=== PATIENT | female | born 1955 | race Caucasian/White ===

== ENCOUNTER → 2017-10-20 11:16 | Outpatient (REF) | payer OTHER, SELFPAY ==
[2017-10-20 13:26] LABS: Anion Gap 9.8 mmol/L (3-11); BUN 21 mg/dL (7-18); CO2 27.2 mmol/L (21.0-32.0); CREATININE 1.05 mg/dL (0.55-1.02); Calcium 9.2 mg/dL (8.5-10.1); Chloride 105 mmol/L (98-107); Estimated GFR 52.76 (mL/min/1.73m2); Glucose 100 mg/dL (70-100); Potassium 4.3 mmol/L (3.5-5.1); Sodium 142 mmol/L (136-145); TSH 1.82 uIU/mL (0.358-3.74)
== END ==
LOC: NCHCN 11:16
PROVIDERS: PCP Family Medicine; Visit Provider Family Medicine
DX: E04.2 Nontoxic multinodular goiter (principal); I10 Essential (primary) hypertension
CPT/HCPCS: 80048; 84443

== ENCOUNTER 2018-02-24 00:35 | Outpatient (CLI) | payer OTHER, SELFPAY ==
--- NOTE | 2018-02-24 10:20 | MERGE_ITS ---
*[facility]* *[facility]* [address] [place] [address] Date of study: 02/24/2018 Transthoracic Echocardiography M-mode, complete 2D, complete spectral Doppler, and color Doppler *STUDY CONCLUSIONS* Summary: 1. Left ventricle: The cavity size was severely dilated. There was mild focal basal hypertrophy of the septum. Systolic function was mildly to moderately reduced. The estimated ejection fraction was 40-45%. Severe hypokinesis of the entireinferior myocardium. Akinesis of the basal-midinferolateral myocardium. Doppler parameters are consistent with high ventricular filling pressure. 2. Aortic valve: Valve mobility was restricted. There was trivial regurgitation. VTI ratio of LVOT to aortic valve: 0.61. Valve area (VTI): 1.5cm^2. 3. Right ventricle: The cavity size was normal. Wall thickness was normal. Systolic function was normal. 4. Pulmonary arteries: Pulmonary systolic pressure was increased, in the range of 35mm Hg to 40mm Hg. *PATIENT PRESENTATION* Height: 162.6cm ((64in) ) S/D Pressure: 125 / 69 Weight: 80.7kg ((177.6lb) ) BSA: 1.94m^2 Test start time: 10:40 AM. Test stop time: 11:40 AM. PERFORMING [facility] CERTIFIED PHLEBOTOMIST Sultana Neff RT (R)(CT), [facility] ORDERING Giuseppe Tenorio REFERRING Giuseppe Tenorio *PROCEDURE DATA* Procedure information: The patient was identified by two identifiers. This study was interpreted by [facility]. Pertinent images and digital data are archived for permanent storage and are available for subsequent review. Comparison was made to the study of 04/24/2015. Study status: Routine. Transthoracic echocardiography. M-mode, complete 2D, complete spectral Doppler, and color Doppler. A Transthoracic Echocardiogram was performed. Scanning was performed from the parasternal, apical, subcostal, and suprasternal notch acoustic windows. Images were obtained using an [id number] cardiac ultrasound machine. Image quality was adequate. Study completion: The patient tolerated the procedure well. There were no complications. History: PMH: 60 yo F smoker COPD/SOB, with h/o CHF with LVEF 46% on last echo 2015. systolic murmur RUSB. *CARDIAC ANATOMY* Left ventricle: The cavity size was severely dilated. There was mild focal basal hypertrophy of the septum. Systolic function was mildly to moderately reduced. The estimated ejection fraction was 40-45%. Regional wall motion abnormalities: Severe hypokinesis of the entireinferior myocardium. Akinesis of the basal-midinferolateral myocardium. Doppler parameters are consistent with high ventricular filling pressure. Aortic valve: Trileaflet; mildly thickened, mildly calcified leaflets. Valve mobility was restricted. Doppler: Transvalvular velocity was within the normal range. There was no stenosis. There was trivial regurgitation. VTI ratio of LVOT to aortic valve: 0.61. Valve area (VTI): 1.5cm^2. Indexed valve area (VTI): 0.8cm^2/m^2. Peak velocity ratio of LVOT to aortic valve: 0.53. Valve area (Vmax): 1.3cm^2. Indexed valve area (Vmax): 0.7cm^2/m^2. Mean velocity ratio of LVOT to aortic valve: 0.59. Valve area (Vmean): 1.5cm^2. Indexed valve area (Vmean): 0.8cm^2/m^2. Mean gradient (S): 6.8mm Hg. Peak gradient (S): 14.4mm Hg. Aorta: Aortic root: The aortic root was normal in size. Ascending aorta: The ascending aorta was normal in size. Mitral valve: Mildly calcified annulus. Mobility was not restricted. Doppler: Transvalvular velocity was within the normal range. There was no evidence for stenosis. There was trivial regurgitation. Valve area by pressure half-time: 3.3cm^2. Indexed valve area by pressure half-time: 1.7cm^2/m^2. Peak gradient (D): 4.2mm Hg. Left atrium: The atrium was normal in size. Right ventricle: The cavity size was normal. Wall thickness was normal. Systolic function was normal. Pulmonic valve: Doppler: Transvalvular velocity was within the normal range. There was no evidence for stenosis. There was trivial regurgitation. Peak gradient (S): 3mm Hg. Tricuspid valve: Structurally normal valve. Doppler: Transvalvular velocity was within the normal range. There was no evidence for stenosis. There was trivial regurgitation. Pulmonary artery: Pulmonary systolic pressure was increased, in the range of 35mm Hg to 40mm Hg. Right atrium: The atrium was normal in size. Pericardium: There was no pericardial effusion. Systemic veins: Inferior vena cava: Well visualized. The vessel was patent and normal in size. The respirophasic diameter changes were in the normal range (greater than or equal to 50%). Baseline ECG: Bradycardia. Measurements Left ventricle Value Reference LV ID, ED, PLAX (H) 6.5 cm 3.5 - 6.0 LV ID, ES, PLAX (H) 5.1 cm 2.1 - 4.0 LV PW thickness, ED, PLAX 0.8 cm LV end-diastolic volume, 1-p A2C 145 ml LV ejection fraction, 1-p A2C 37 % LV end-diastolic volume, 1-p A4C 139 ml LV ejection fraction, 1-p A4C 46 % LV e', lateral 0.033 m/sec LV E/e', lateral 31 LV e', medial 0.044 m/sec LV E/e', medial 23 LV e', average 0.038 m/sec LV E/e', average 27 Ventricular septum Value Reference IVS thickness, ED, PLAX 1.1 cm LVOT Value Reference LVOT ID, A-P 1.8 cm LVOT area 2.5 cm^2 LVOT peak velocity, S 1.01 m/sec LVOT mean velocity, S 0.72 m/sec LVOT VTI, S 26.3 cm LVOT peak gradient, S 4.1 mm Hg LVOT mean gradient, S 2.3 mm Hg Stroke volume (SV), LVOT DP 66 ml Stroke index (SV/bsa), LVOT DP 34 ml/m^2 Aortic valve Value Reference Aortic valve peak velocity, S 1.9 m/sec Aortic valve mean velocity, S 1.23 m/sec Aortic valve VTI, S 43.0 cm Aortic mean gradient, S 6.8 mm Hg Aortic peak gradient, S 14.4 mm Hg VTI ratio, LVOT/AV 0.61 Aortic valve area, VTI 1.5 cm^2 Velocity ratio, peak, LVOT/AV 0.53 Aortic valve area, peak velocity 1.3 cm^2 Velocity ratio, mean, LVOT/AV 0.59 Aortic valve area, mean velocity 1.5 cm^2 Aortic valve area/bsa, mean velocity 0.8 cm^2/m^2 Aorta Value Reference Aortic root ID, ED 3.6 cm Ascending aorta ID, A-P, S 3.4 cm Left atrium Value Reference LA ID, A-P, ES 5.3 cm LA ID/bsa, A-P (H) 2.8 cm/m^2 <=2.2 LA area, ES, A4C (H) 26.1 cm^2 8.8 - 23.4 LA area, ES, A2C 25 cm^2 LA volume/bsa, ES, 1-p A4C 53 ml/m^2 LA volume, ES, 2-p 88 ml LA volume/bsa, ES, 2-p 45 ml/m^2 LA/aortic root ratio 1.49 Mitral valve Value Reference Mitral E-wave peak velocity 1.02 m/sec Mitral A-wave peak velocity 0.9 m/sec Mitral deceleration time 227 ms 150 - 230 Mitral pressure half-time 66 ms Mitral peak gradient, D 4.2 mm Hg Mitral E/A ratio, peak 1.14 Mitral valve area, PHT, DP 3.3 cm^2 Pulmonary veins Value Reference Pulmonary vein peak velocity, S 0.61 m/sec Pulmonary vein peak velocity, D 0.57 m/sec Pulmonary vein velocity ratio, peak, 1.05 S/D Pulmonary vein A-wave reversal peak 0.27 m/sec velocity Tricuspid valve Value Reference Tricuspid regurg peak velocity 3.1 m/sec Tricuspid peak RV-RA gradient 37.9 mm Hg Right atrium Value Reference RA area, ES, A4C 13.3 cm^2 8.3 - 19.5 Pulmonic valve Value Reference Pulmonic peak gradient, S 3 mm Hg Legend: (L) and (H) sneha values outside specified reference range. I have personally reviewed the images and have reviewed and edited the reported findings. Electronically signed by Tony Whitt 02/24/2018 13:28
== END 2018-02-24 00:55 ==
PROVIDERS: PCP Family Medicine; Visit Provider Family Medicine
DX: R06.02 Shortness of breath (principal); J44.9 Chronic obstructive pulmonary disease, unspecified; I50.9 Heart failure, unspecified; I35.1 Nonrheumatic aortic (valve) insufficiency; Z87.891 Personal history of nicotine dependence
CPT/HCPCS: 93306

== ENCOUNTER 2018-03-11 14:43 | Outpatient (REF) | payer OTHER, SELFPAY ==
[2018-03-11 15:18] LABS: Anion Gap 6.7 mmol/L (3-11); BUN 21 mg/dL (7-18); CO2 32.3 mmol/L (21.0-32.0); CREATININE 0.94 mg/dL (0.55-1.02); Calcium 9.1 mg/dL (8.5-10.1); Chloride 103 mmol/L (98-107); Estimated GFR 59.95 (mL/min/1.73m2); Glucose 79 mg/dL (70-100); Magnesium 2.1 mg/dL (1.8-2.4); Potassium 3.4 mmol/L (3.5-5.1); Sodium 142 mmol/L (136-145)
== END 2018-03-11 15:03 ==
LOC: NCHCN 14:43
PROVIDERS: PCP Family Medicine; Visit Provider Family Medicine
DX: I10 Essential (primary) hypertension (principal); I50.9 Heart failure, unspecified
CPT/HCPCS: 80048; 83735

== ENCOUNTER 2019-08-30 21:42 | Outpatient (REF) | payer OTHER, SELFPAY ==
[2019-08-30 19:37] LABS: Hemoglobin A1C 5.7 % (3.8-5.6)
[2019-08-30 19:41] LABS: ALT 30 U/L (14-59); AST 21 U/L (15-37); Alkaline Phosphatase 126 U/L (46-116); Anion Gap 10.1 mmol/L (3-11); BUN 21 mg/dL (7-18); Bilirubin, Total 0.4 mg/dL (0.2-1.0); CO2 26.9 mmol/L (21.0-32.0); CREATININE 0.96 mg/dL (0.55-1.02); Calcium 9.1 mg/dL (8.5-10.1); Calculated LDL 142 mg/dL (<100); Chloride 104 mmol/L (98-107); Cholesterol 234 mg/dL (<200); Estimated GFR 58.15 (mL/min/1.73m2); Glucose 93 mg/dL (74-106); HDL Cholesterol 55 mg/dL (40-60); Potassium 3.7 mmol/L (3.5-5.1); Sodium 141 mmol/L (136-145); TSH (W/Ref FT4) 1.22 uIU/mL (0.36-3.74); Total Protein 7.1 g/dL (6.4-8.2); Triglyceride 186 mg/dL (<150)
== END 2019-08-30 22:02 ==
LOC: NCHCN 21:42
PROVIDERS: PCP Family Medicine; Visit Provider Family Medicine
DX: E04.2 Nontoxic multinodular goiter (principal); R73.09 Other abnormal glucose; R10.13 Epigastric pain; I10 Essential (primary) hypertension; I25.10 Atherosclerotic heart disease of native coronary artery without angina pectoris
CPT/HCPCS: 80053; 80061; 83036; 84443

== ENCOUNTER 2019-09-02 03:55 | Outpatient (CLI) | payer OTHER, SELFPAY ==
--- NOTE | 2019-09-02 | DI.US_ITS ---
EXAM: US ABDOMEN INDICATION: CRAMPY EPIGASTRIC PAIN, ? GALLSTONES COMPARISON: US Cardiac from 02/24/2018 TECHNIQUE: Ultrasound abdomen performed using standard protocol FINDINGS: Abdominal ultrasound was performed according to the usual protocol. The liver is normal in size and shape. No focal hepatic lesion seen. There is no evidence of cholelithiasis or biliary dilatation. No gallbladder wall thickening or peric holecystic fluid collection. Pancreas appears intact as visualized. Spleen is unremarkable in appearance with no focal lesion. Kidneys are normal in size and shape. No hydronephrosis or nephrolithiasis. 7-[address] echogenic focus of right renal cortex probably represents a small angiomyolipoma. Follow-up ultr asound recommended in 6 months. Abdominal aorta and IVC are of normal diameter. 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 Follow-up ultrasound recommended in 6 months to assess stability.
== END 2019-09-02 04:15 ==
PROVIDERS: PCP Family Medicine; Visit Provider Family Medicine
DX: R10.13 Epigastric pain (principal)
CPT/HCPCS: 76700

== ENCOUNTER 2019-09-15 00:18 | Outpatient (CLI) | payer OTHER, SELFPAY ==
--- NOTE | 2019-09-15 | DI.MAMMO_ITS ---
EXAM: MAMMO SCREENING CLINICAL HISTORY: SCREENING, Z12.39 TECHNIQUE: Mammograms were interpreted according to the usual protocol including computer analysis w [employer] CAD system, tomosynthesis and C-view imaging. COMPARISON: 2010 through 2017 FINDINGS: The breasts are composed of scattered fibroglandular densities, Breast Density category B. No suspicious masses or suspicious microcalcifications are seen. No skin thickening or abnormal axillary lymph nodes are seen. There has been no significant change from prior exams. IMPRESSION: BI-RADS Category 1, negative mammogram. Yearly screening mammography is recommended. Breast Density Category B, scattered fibroglandular densities.
== END 2019-09-15 00:38 ==
PROVIDERS: PCP Family Medicine; Visit Provider Family Medicine
DX: Z12.31 Encounter for screening mammogram for malignant neoplasm of breast (principal)
CPT/HCPCS: 77063; 77067

== ENCOUNTER 2019-09-29 00:07 | Outpatient (CLI) | payer OTHER, SELFPAY ==
--- NOTE | 2019-09-29 07:45 | DI.NM_ITS ---
APPROVED REPORT Exam: Pharmacologic Patient Location: Out-Patient Room/Bed: Stress Nurse: Angela Caban RN BMI: 30.89 Baseline Rhythm: Sinus Rhythm Comment: Prolonged ND interval Indications: CAD. ASCVD. Medical History Cardiac Medications: Metoprolol. Losartan. Pantoprazole. Rosuvastatin. Amlodipine. Clopidirel. Hydroc hlorothiazide. Aspirin. COQ10. Potassium. Flaxseed oil. Evening primrose oil. Allergies: Ibuprofen. Codeine Cardiac Risk Factors: HTN, Hyperlipidemia, FHX of CAD, Smoking Previous Cardiac Procedures: Myocardial infarction, PCI Pretest Chest Pain Characteristics: Dyspnea Exercise History: Indeterminate Physical Disabilities: Legs Lung Sounds: Clear to auscultation Heart Sounds: Regular Stress Test Details Test: Pharmacologic stress testing performed using 0.4 mg of regadenoson per 5 mL given IV over 10 s econds. Nuclear Acquisition: Rest Tc-99m/Stress Tc-99m 1 day Rest Isotope: Tc-99m Sestamibi. Dose: 10.8 Date: 09/29/2019 Injection Time: 0935 Stress Isotope: Tc-99m Sestamibi. Dose: 32.0 Date: 09/29/2019 Injection Time: 1120 HR Resting HR Supine: 58 bpm Max Heart Rate (APMHR): 154 bpm Target HR (85% APMHR): 130 bpm Recovery HR: 67 bpm HR response to stress: Normal HR response to stress BP Resting BP Supine: 160/90 mmHg Recovery BP: 162/86 mmHg BP response to stress: Normal blood pressure response to stress. ECG Resting ECG: Sinus Rhythm Stress ECG: Sinus Rhythm ST Change: Normal Arrhythmia: None Recovery ECG: Sinus Rhythm Recovery ST Change: Normal Recovery Arrhythmia: VPC Stress ECG Conclusion 1. This is a pharmacological stress test. 2. The patient no symptoms suggestive of ischemia. 3. EKG portion of this exam is indeterminate. Stress Test Summary STAGE HR BP Symptoms NOTES Supine 58 160/90 1 min post Lexiscan injection 88 158/92 3 min post Lexiscan injection 72 152/80 6 min post Lexiscan injection 67 162/86 MPI Conclusion The imaging portion of this exam was uninterpretable due to significant bowel uptake and attenuation. Please consider alternative stress testing modality. Radiologist Interpretation Radiologist Interpretation by: Natan Wallace MD Interpretation Date/Time: 09/30/2019 08:38:48
[2019-09-29] MEDS: Regadenoson 0.4 MG/5 ML SYR IVP (11:13)
== END 2019-09-29 00:27 ==
PROVIDERS: PCP Family Medicine; Visit Provider Internal Medicine Cardiovascular Disease
DX: I25.10 Atherosclerotic heart disease of native coronary artery without angina pectoris (principal); I10 Essential (primary) hypertension; E78.5 Hyperlipidemia, unspecified; F17.210 Nicotine dependence, cigarettes, uncomplicated; Z82.49 Family history of ischemic heart disease and other diseases of the circulatory system
CPT/HCPCS: 78452; 93017; J2785

== ENCOUNTER 2020-07-16 22:51 | Outpatient (REF) | payer OTHER, SELFPAY ==
[2020-07-16 16:22] LABS: Hemoglobin A1C 5.8 % (<5.7)
[2020-07-16 16:43] LABS: Anion Gap 9.7 mmol/L (3-11); BUN 25 mg/dL (7-18); CO2 29.3 mmol/L (21.0-32.0); CREATININE 0.9 mg/dL (0.55-1.02); Calcium 9.3 mg/dL (8.5-10.1); Calculated LDL 150 mg/dL (<100); Chloride 103 mmol/L (98-107); Cholesterol 234 mg/dL (<200); Glucose 84 mg/dL (74-106); HDL Cholesterol 57 mg/dL (40-60); Potassium 3.7 mmol/L (3.5-5.1); Sodium 142 mmol/L (136-145); Triglyceride 137 mg/dL (<150)
[2020-07-18 11:24] LABS: Hepatitis C Ab w Rflx HCV PCR Negative (Negative)
== END 2020-07-16 22:52 | disposition home or self-care (01) ==
LOC: NCHCN 22:51
PROVIDERS: PCP Family Medicine; Visit Provider Family Medicine
DX: R73.09 Other abnormal glucose (principal); I10 Essential (primary) hypertension; Z11.59 Encounter for screening for other viral diseases; Z00.00 Encounter for general adult medical examination without abnormal findings; I25.10 Atherosclerotic heart disease of native coronary artery without angina pectoris; E78.5 Hyperlipidemia, unspecified
CPT/HCPCS: 80048; 80061; 86803; 83036

== ENCOUNTER 2021-01-14 15:09 | Outpatient (REF) | payer OTHER, SELFPAY ==
[2021-01-14 18:16] LABS: Anion Gap 7.3 mmol/L (3-11); BUN 32 mg/dL (7-18); CO2 31.7 mmol/L (21.0-32.0); CREATININE 0.9 mg/dL (0.55-1.02); Calcium 9.5 mg/dL (8.5-10.1); Chloride 104 mmol/L (98-107); Glucose 95 mg/dL (74-106); Magnesium 2.4 mg/dL (1.8-2.4); Potassium 3.8 mmol/L (3.5-5.1); Sodium 143 mmol/L (136-145)
== END 2021-01-14 15:10 | disposition home or self-care (01) ==
LOC: NCHCN 15:09
PROVIDERS: PCP Family Medicine; Visit Provider Family Medicine
DX: R25.2 Cramp and spasm (principal)
CPT/HCPCS: 80048; 83735

== ENCOUNTER 2021-02-25 13:16 | Outpatient (REF) | payer OTHER, SELFPAY ==
[2021-02-25 15:37] LABS: Anion Gap 5.9 mmol/L (3-11); BUN 26 mg/dL (7-18); CO2 30.1 mmol/L (21.0-32.0); CREATININE 0.8 mg/dL (0.55-1.02); Chloride 103 mmol/L (98-107); Glucose 87 mg/dL (74-106); Magnesium 2.3 mg/dL (1.8-2.4); Potassium 3.9 mmol/L (3.5-5.1); Sodium 139 mmol/L (136-145)
== END 2021-02-25 13:17 | disposition home or self-care (01) ==
LOC: NCHCN 13:16
PROVIDERS: PCP Family Medicine; Visit Provider Family Medicine
DX: Z00.00 Encounter for general adult medical examination without abnormal findings (principal); R73.09 Other abnormal glucose; I10 Essential (primary) hypertension; I50.9 Heart failure, unspecified; I25.10 Atherosclerotic heart disease of native coronary artery without angina pectoris; E78.5 Hyperlipidemia, unspecified
CPT/HCPCS: 80048; 83735

== ENCOUNTER 2021-04-20 14:20 | Emergency (ER) | payer OTHER, SELFPAY ==
[2021-04-20] VITALS (26 sets, daily range): BP systolic 124–161; BP diastolic 55–78; PULSE 65–86; RESP 14–27; TEMP 37.1; O2SAT 94–99
--- NOTE | 2021-04-20 14:15 | RT.EKG_ITS ---
APPROVED REPORT Exam: Resting ECG Reason for Exam: heart issues Patient Location: E HR:70 bpm ECG Measurements Heart Rate 70 AXIS IA 232 P 35 QRSd 105 QRS -19 QT 408 T 109 QTc 446 Conclusion Sinus rhythm...normal P axis, V-rate 60- 99 Prolonged IA interval...IA >220, V-rate 50- 90 LVH with secondary repolarization abnormality...multi-LVH criteria, abnrm ST-T Inferior infarct, old...Q >35mS, II III aVF. Sinus. PVCs. PACs. No STEMI. I have reviewed and interpreted ECG and agree with software generated interpretation.
--- NOTE | 2021-04-20 14:45 | DI.RAD_ITS ---
Exam(s) XR PORTABLE CHEST AP EXAM: XR PORTABLE CHEST AP CLINICAL HISTORY: pressure TECHNIQUE: 2D digital imaging was performed of the chest. One image was obtained. An AP view was ob tained. COMPARISON: CR CHEST 2 VIEWS PA,LAT from 04/23/2015 FINDINGS: MEDIASTINUM: Normal. HEART: Mildly enlarged. Unchanged prominence of the pulmonary vasculature. This may reflect some de gree of pulmonary artery hypertension. Please correlate clinically. PULMONARY VASCULATURE: Normal. LUNGS: No definite pulmonary infiltrates. PLEURAL SPACE: No pleural effusion or pneumothorax. BONE:Within normal limits for the patient's age. OTHER FINDINGS:Normal. IMPRESSION: No acute pulmonary findings. DATA REPOSITORY: RADIATION DOSE DELIVERED:
--- NOTE | 2021-04-20 15:00 | ED.GENADUL_ITS ---
Discharge Plan Disposition Patient Disposition: HOME Condition: Stable Discharge Details Clinical Impression: Dizziness Primary Care Provider: Giuseppe Tenorio ED Provider: Pepper Mancilla Home Meds and New Rx's Prescriptions: Continued losartan 100 mg tablet 100 mg PO HS 0RF Label Comments: 09/24/20 pt states she takes 100 mg, RH rosuvastatin 5 mg tablet 5 mg PO DAILY 0RF Label Comments: 09/24/20 pt states she takes 5 mg, confirmed with med list from PCP, RH hydrochlorothiazide 25 mg tablet 25 mg PO DAILY 0RF Label Comments: 09/24/20 confirmed by PCP med list RH amlodipine 10 mg tablet 10 mg PO DAILY 0RF 3-xptuoew-D-tryptophan (bulk) 100 GM powder 100 gm Miscellaneous DAILY 0RF pantoprazole [Protonix] 20 MG tablet,delayed release (DR/EC) 20 mg PO HS 0RF Label Comments: pt unsure if this is 20 mg or 40 mg now 04/23/15 B Complex 1 EACH tablet extended release 1 ea PO DAILY AM 0RF fexofenadine [Sakina Allergy] 180 MG tablet 180 mg PO DAILY PRN0RF Label Comments: pt uses in the summer 04/23/15 flaxseed oil 1,000 MG capsule 1,000 mg PO DAILY 0RF calcium carbonate [Calcium 500] 500 MG tablet 1,000 mg PO DAILY 0RF coenzyme Q10 [CoQ-10] 100 MG capsule 100 mg PO DAILY 0RF Flovent HFA 12 GM HFA aerosol inhaler 2 puff Inhalation BID 0RF albuterol sulfate [Ventolin HFA] 8 GM HFA aerosol inhaler 2 puff Inhalation Q6H 0RF nitroglycerin 0.4 MG tablet, sublingual 0.4 mg Sublingual DIRECTED 0RF Label Comments: pt unsure when she took this last 04/23/15 aspirin [Aspir-81] 81 MG tablet,delayed release (DR/EC) 81 mg PO DAILY 0RF metoprolol succinate [Toprol XL] 25 MG tablet extended release 24 hr 25 mg PO HS 0RF Label Comments: Increased 05/16/[address] Whitt magnesium oxide 400 MG tablet 400 mg PO BID Qty: 180 0RF clopidogrel [Plavix] 75 MG tablet 75 mg PO HS 0RF Discharge Instructions Instructions: Dizziness (ED) Additional Instructions: Follow up with primary care provider in 3-5 days. Return to ED sooner if any worsening or concerns. Increase oral fluids. Work-up today is negative for pulmonary embolism. Cardiac enzymes are within normal limits. Your Covid test is still pending. No evidence of urinary tract infection. You appear to be slightly dehydrated. Referrals: Giuseppe Tenorio [Primary Care Provider] - 3 days Discharge Data Discharge Date/Time-TO BE ENTERED AT DEPARTURE: 04/20/21 19:41 Medical Decision Making <PAWEL Santo - Last Filed: 04/23/21 16:01> 65-year-old female, past medical history of CAD, CHF, hypertension, stent placement x2 in 2017, presents with multiple complaints today, simply not feeling well. She reports chest tightness, headache, nausea, reported dizziness triage but denies any to me. Took nitro today, made no change in her chest discomfort although has no chest discomfort now, reports making her headache worse. She initially told me her symptoms have been present for a couple of days but worse today, later she tells me she saw her primary care provider approximately 10 days ago, placed on steroids and a nebulizer. Patient did have Covid roughly 3 weeks ago. Plan is to initiate cardiac work-up, D-dimer, chest x-ray, thyroid studies. Will obtain chest x-ray and a rapid Covid. Patient was offered antiemetic but she declines. Clinically she appears well, nontoxic, hemodynamically stable. Upon reevaluation patient reports that maybe her symptoms in her chest were made worse when leaning forward. Will obtain inflammatory markers as well. WBC of 13.56, mild but nonspecific leukocytosis the patient was recently on steroids. No evidence of anemia. ESR of 54. INR is 0.9. D-dimer pending. Sodium 134, potassium 3.2, will replenish. Creatinine 0.9 with a GFR of greater than 60. Calcium 9.1 magnesium 2.2. Troponin less than 50 Medical Records Medical records reviewed: Yes I reviewed the patient's medical records. Lab Data Lab results reviewed: Yes I reviewed the patient's lab results. Labs: Laboratory Tests Range/Units 04/20/21 04/20/21 04/20/21 14:35 14:35 15:22 WBC (4.4-10.8) 10^3/uL 13.56 H RBC (3.93-5.22) 10^6/uL 4.01 Hgb (11.2-15.7) g/dL 11.5 Hct (36.0-46.0) % 35.6 L MCV (80-95) fL 88.8 MCH (27.0-33.0) pg 28.7 MCHC (32.0-36.0) % 32.3 RDW (11.7-14.6) % 15.0 H Plt Count (130-400) 10^3/uL 283 MPV (8.0-11.0) fL 11.5 H Immature Gran % 1.0 Neutrophils % 67.7 Lymphocytes % 20.4 Monocytes % 9.9 Eosinophils % 0.8 Basophils % 0.2 Nucleated RBC % % 0 Absolute Neutrophils (1.2-6.7) 10^3/uL 9.18 H Absolute Lymphocytes (1.2-3.4) 10^3/uL 2.77 Absolute Monocytes (0.1-0.8) 10^3/uL 1.34 H Absolute Eosinophils (0.0-0.7) 10^3/uL 0.11 Absolute Basophils (0.0-0.2) 10^3/uL 0.03 ESR (0-30) mm/hr 54 H Sodium (136-145) mmol/L 134 L Potassium (3.5-5.1) mmol/L 3.2 L Chloride (98-107) mmol/L 100 Carbon Dioxide (21.0-32.0) mmol/L 26.9 Anion Gap (3-11) mmol/L 7.1 BUN (7-18) mg/dL 26 H Creatinine (0.55-1.02) mg/dL 0.9 Estimated GFR/1.73 m2 (mL/min/1.73m2) >= 60.00 Glucose (74-106) mg/dL 126 H Calcium (8.5-10.1) mg/dL 9.1 Magnesium (1.8-2.4) mg/dL 2.2 Total Bilirubin (0.2-1.0) mg/dL 0.5 AST (15-37) U/L 12 L ALT (14-59) U/L 22 Alkaline Phosphatase (46-116) U/L 124 H Troponin I (<or=60) ng/L < 50 Total Protein (6.4-8.2) g/dL 6.9 Albumin (3.4-5.0) g/dL 3.0 L ECG Data Attestation: I personally reviewed and interpreted this ECG (s) as follows: Interpretation: Please see official report by Dr. Farah. Sinus rhythm, ventricular rate of 70. Multiple PVCs. Nonspecific ST-T wave abnormalities but no STEMI <Pepper Mancilla - Last Filed: 04/20/21 22:27> 65-year-old female, past medical history of CAD, CHF, hypertension, stent blair cement x2 in 2017, presents with multiple complaints today, simply not feeling well. She reports chest tightness, headache, nausea, reported dizziness triage but denies any to me. Took nitro today, made no change in her chest discomfort although has no chest discomfort now, reports making her headache worse. She initially told me her symptoms have been present for a couple of days but worse today, later she tells me she saw her primary care provider approximately 10 days ago, placed on steroids and a nebulizer. Patient did have Covid roughly 3 weeks ago. Plan is to initiate cardiac work-up, D-dimer, chest x-ray, thyroid studies. Will obtain chest x-ray and a rapid Covid. Patient was offered antiemetic but she declines. Clinically she appears well, nontoxic, hemodynamically stable. Upon reevaluation patient reports that maybe her symptoms in her chest were made worse when leaning forward. Will obtain inflammatory markers as well. WBC of 13.56, mild but nonspecific leukocytosis the patient was recently on steroids. No evidence of anemia. ESR of 54. INR is 0.9. D-dimer pending. Sodium 134, potassium 3.2, will replenish. Creatinine 0.9 with a GFR of greater than 60. Calcium 9.1 magnesium 2.2. Troponin less than 50. 1607: Care assumed from provider (PAWEL Bravo )please see their initial HPI, PE, and documentation. Discussed patient details and case and pending workup and disposition. Patient is hemodynamically stable, and alert and oriented. At the time of signout BNP and D-dimer pending. proBNP slightly elevated at 1027, D-dimer also elevated at 1173. CT chest rule out PE ordered. Imaging protocol: XR of the chest. Views: 1 view. COMPARISON: CR CHEST 2 VIEWS PA,LAT 04/23/2015 3:06 PM FINDINGS: Lungs: The lungs are well aerated with subtle ill-defined ground-glass opacity seen within the right mid lung, lateral aspect. Pleural spaces: No pleural effusion or pneumothorax. Heart/Mediastinum: Mediastinum stable with heart size upper limits of normal to minimally enlarged, tortuous left descending aorta with atherosclerotic calcification within the aortic arch and midline trachea. Bones/joints: Unremarkable for patient's stated age. IMPRESSION: Subtle ground-glass opacity within the right midlung which is a nonspecific finding with possible etiology of inflammation, edema, partial collapse/filling of alveoli, etc. Thank you for allowing us to participate in the care of your patient. Dictated and Authenticated by: Irwin Michael MD COMPARISON: XR PORTABLE CHEST AP 04/20/2021 3:24 PM FINDINGS: Pulmonary arteries: Hounsfield attenuation of the right pulmonary artery measures 347 and therefore this study is diagnostic. No main, lobar or segmental pulmonary embolus seen. Aorta: No aneurysm or dissection. Lungs: Bilateral peripheral ground-glass opacities present, predominantly within the right upper lobe, without consolidation, series 5, image 224. Airways are patent. Pleural spaces: No pleural effusion pneumothorax. Mediastinum: Thyroid gland is unremarkable. Heart size is upper limits of normal to minimally enlarged. No pericardial effusion or thickening. Esophagus is unremarkable. At herosclerotic calcification is seen within the aortic arch, coronary arteries and descending thoracic aorta. Lymph nodes: There is a 12 mm in short axis lymph node adjacent to the aortic arch and a 10 mm in short axis lymph node adjacent to the proximal right mainstem bronchus. Superior abdomen: Visualized portion of the liver, gallbladder, right adrenal gland, kidneys, spleen with adjacent splenule, pancreas, minimally distended stomach and bowel are unremarkable in appearance for patient's stated age. Infrequent colonic diverticuli seen without evidence of diverticulitis. No superior abdominal lymphadenopathy, free air or significant free fluid. Incidental note is made of a fat containing right Bochdalek hernia. Bones/joints: No acute osseous injury or underlying osseous mass. Soft tissues: Unremarkable. IMPRESSION: 1. No main, lobar segmental pulmonary embolus seen. 2. Bilateral peripheral ground-glass opacities, predominantly within the right upper lobe. This is a nonspecific finding. However, would recommend evaluation for possible COVID. 3. Mild mediastinal lymphadenopathy. 4. Diverticulosis without evidence of diverticulitis. CT negative for PE. At this time Covid is still pending. Repeat troponin within normal limits. Urinalysis added on. Patient was given Tylenol for headache. Discussed results with patient who verbalized understanding. This time expected disposition is discharge. Patient discharged home with strict return instructions verbalized understanding. No evidence for urinary tract infection. This text was generated using [employer]ionization system, please disregard any oddities of phrase or misspellings. HPI <PAWEL Santo - Last Filed: 04/23/21 16:01> General Mode of arrival: ambulatory . Date/Time Provider Initiated Documentation: 04/20/21 14:20 . Limitations to Documentation: no limitations . Information obtained by: patient . HPI Narrative: This is a 65-year-old female, past medical history of CAD, CHF, hypertension, stent placement x2 in 2017 presenting to the ER for multiple symptoms, reporting generalized weakness, chest pressure, headache, nausea. Patient smokes 1/2 pack of cigarettes daily and is not vaccinated for COVID. She reports that she had COVID approximately 3 weeks ago. Patient tells me that her symptoms have been present for the past couple of days but then later tells me they have worsened today, later tells me that she saw her primary care provider for generalized weakness roughly 10 days ago was placed on steroids. She tells me also that she took 2 nitro today because although at the time she was not having chest pain, she wondered if her symptoms in general or because of her heart. She tells me she had a bilateral posterior headache over the past 24 hours and the headache became worse after taking her nitro. She denies recent trauma, visual changes, fever, neck pain. She reports that her chest discomfort feels like I am wearing a tight bra. She reports baseline mild cough no shortness of breath but denies any acute symptoms. She denies any abdominal pain to me, vomiting, dysuria, hematuria, diarrhea or constipation. Denies any pain or swelling in her legs. She later tells me that the #1 reason she came today is for her nausea but when offered a antiemetic she then tells me Oh, I am really not that nauseous right now. Patient does take Plavix daily. Related Data Home Medications Medication Instructions Recorded Confirmed albuterol sulfate 90 mcg/actuation 2 puff INHALATION Q6H 12/09/13 09/24/20 aerosol inhaler (Ventolin HFA) aspirin 81 mg tablet,delayed 81 mg PO DAILY 12/09/13 04/20/21 release (Aspir-) fluticasone propionate 220 2 puff INHALATION BID 12/09/13 04/20/21 mcg/actuation HFA aerosol inhaler (Flovent HFA) nitroglycerin 0.4 mg sublingual 0.4 mg SUBLINGUAL DIRECTED 12/09/13 09/24/20 tablet [id number]-tryptophan (bulk) 100 gm MISCELLANEOUS DAILY 04/20/15 04/20/21 calcium carbonate 500 mg calcium 1,000 mg PO DAILY 04/20/15 09/24/20 (1,250 mg) tablet (Calcium 500) coenzyme Q10 100 mg capsule 100 mg PO DAILY 04/20/15 04/20/21 (CoQ-10) fexofenadine 180 mg tablet 180 mg PO DAILY PRN tab-cap 04/20/15 09/24/20 (Sakina Allergy) flaxseed oil 1,000 mg capsule 1,000 mg PO DAILY 04/20/15 04/20/21 pantoprazole 20 mg tablet,delayed 20 mg PO HS tab-cap 04/20/15 04/20/21 release (Protonix) vitamin B complex (B Complex) 1 ea PO DAILY AM 04/20/15 04/20/21 metoprolol succinate 25 mg 25 mg PO HS 04/23/15 04/20/21 tablet,extended release 24 hr (Toprol XL) magnesium oxide 400 mg (241.3 mg 400 mg PO BID #180 tab 04/25/15 09/24/20 magnesium) tablet clopidogrel 75 mg tablet (Plavix) 75 mg PO HS 06/05/17 04/20/21 amlodipine 10 mg tablet 10 mg PO DAILY 09/19/19 04/20/21 hydrochlorothiazide 25 mg tablet 25 mg PO DAILY 09/24/20 04/20/21 losartan 100 mg tablet 100 mg PO HS 09/24/20 04/20/21 rosuvastatin 5 mg tablet 5 mg PO DAILY 09/24/20 04/20/21 Previous Rx's Medication Instructions Recorded magnesium oxide 400 mg (241.3 mg 400 mg PO BID #180 tab 04/25/15 magnesium) tablet Allergies Allergy/AdvReac Type Severity Reaction Status Date / Time ibuprofen Allergy Severe Hives Verified 04/20/21 14:36 codeine AdvReac Mild nausea/vomi Verified 04/20/21 14:36 ting JUAN MIGUEL Inhibitors AdvReac Unverified 04/20/21 15:00 bupropion [From Wellbutrin] AdvReac Unverified 04/20/21 15:00 General Stated Complaint: Dizzy/Sync DENNY: 2 Review of Systems <PAWEL Santo - Last Filed: 04/23/21 16:01> Constitutional Constitutional: Reports fatigue, Denies fever(s) and Reports headache(s) Eyes Eyes: Denies change in vision ENT Ears, Nose, Mouth, and Throat: Reports headache(s) and Denies neck pain Cardiovascular Cardiovascular: Reports chest pain and Reports dyspnea Respiratory Respiratory: Reports cough and Reports dyspnea Gastrointestinal Gastrointestinal: Denies abdominal pain, Denies constipation, Denies diarrhea, Reports nausea and Denies vomiting Genitourinary Genitourinary: Denies dysuria Musculoskeletal Musculoskeletal: Denies back pain, Denies neck pain, Denies numbness and Denies tingling Integumentary/Breasts Skin/Breast: Denies rash Neurologic Neurologic: Reports headache(s), Denies numbness and Denies tingling Endocrine Endocrine: Reports fatigue Hematologic/Lymphatic Hematologic/Lymphatic: Reports easy bleeding and Reports easy bruising PFSH <PAWEL Santo - Last Filed: 04/23/21 16:01> All Active Problems (Updated 04/20/21 @ 19:18 by Pepper Mancilla) Dizziness (Acute) ASCVD (arteriosclerotic cardiovascular disease) (Acute) CHF (congestive heart failure), NYHA class III (Acute) Elevated troponin I measurement (Acute) Coronary arteriosclerosis (Acute) Social History Smoking/Tobacco Use Status: Current every day Tobacco Type: cigarettes Smoking packs per day: 0.5 Smoking cigarettes per day: 10.0 Smoking risk assessment performed?: Yes Alcohol Intake: never Drug use: Never Substance use type: does not use Do you feel safe at home: Yes Do you feel safe in your relationship?: Yes History History Para 2 Hx # Term Pregnancies Multiple births Hx # Pregnancies Ectopic pregnancies AB induced Hx Number of Living Children AB spontaneous Exam <PAWEL Santo - Last Filed: 04/23/21 16:01> Const General: cooperative, healthy appearing, comfortable and no acute distress Orientation: alert, awake and oriented x3 HENMT Head: normal to inspection, normocephalic and atraumatic Face and sinus: normal facial exam Mouth: moist mucous membranes Throat: posterior oropharynx normal Eyes General: appearance normal, both eyes and all related structures Alignment and Position: alignment normal Periorbital: periorbital findings normal Eyelids: eyelids normal Conjunctivae: conjunctivae normal Sclera: sclerae normal Cornea: corneas normal Pupils: PERRL EOM: EOM intact bilaterally Direct ophthalmoscopy: normal light reflex Neck Neck: normal visual inspection, full ROM, no lymphadenopathy, no meningeal signs, trachea midline and supple Resp Effort & Inspection: normal respiratory effort, able to speak in complete sentences and cough Quality of cough: dry (mild) Auscultation: diminished lung sounds bilaterally in the lower lung colby Cardio Rate: regular rate Rhythm: regular rhythm GI Inspection: normal to inspection Palpation: soft, not firm, no guarding, no pulsatile masses and nontender Auscultation: normal bowel sounds Back/Spine/Pelvis Back: No back tenderness Skin General skin exam: no rashes or lesions noted Neuro General: patient alert, patient awake, moves all extremities and no focal motor deficits Cognition: normal cognition Speech: speech normal Motor: muscle tone normal throughout Sensory Exam: no sensory deficits noted Extrem General: normal to inspection, full ROM, capillary refill normal, no pedal edema and no calf tenderness Psych Appearance: grossly normal Mental Status: mental status grossly normal Course <PAWEL Santo - Last Filed: 04/23/21 16:01> Vital Signs Vital signs: Vital Signs Temperature 37.1 C 04/20/21 14:30 Pulse 79 04/20/21 14:30 Respiratory Rate 20 04/20/21 14:30 Blood Pressure 138/78 04/20/21 14:30 Pulse Oximetry 98 04/20/21 14:30 Temperature 37.1 C 04/20/21 14:30 Temperature Source Temporal Artery Scan 04/20/21 14:30 Pulse 79 04/20/21 14:30 Respiratory Rate 18 04/20/21 14:41 Respiratory Effort 04/20/21 14:41 Respiratory Depth Normal 04/20/21 14:41 Respiratory Pattern Normal 04/20/21 14:41 Blood Pressure 138/78 04/20/21 14:30 Blood Pressure Position Supine 04/20/21 14:30 Pulse Oximetry 98 04/20/21 14:30 Oxygen Delivery Method Room Air 04/20/21 14:30 Oxygen Flow Rate 0 04/20/21 14:30 Pain Level 3 04/20/21 14:30 Comment 04/20/21 14:30 Sign Out <PAWEL Santo - Last Filed: 04/23/21 16:01> Sign Out Data: Sign Out Comment: Presents with multiple complaints, unfortunately a rather vague and poor historian. Reports at least 2 days but may be up to 1 week, worse over the past 24 hours of chest tightness, headache, generalized weakness, simply not feeling well. Symptoms made worse when leaning forward. Obtaining a cardiac work-up with inflammatory markers. Sed rate of 54. Initial troponin less than 50. Awaiting BNP, Covid, Dimer, and chest imaging Last updated by Gavin Hudson PA at 04/20/21 15:44
[2021-04-20 15:18] LABS: Abs Immature Grans 0.13 10^3/uL (0.0-0.06); Absolute Basophil Count 0.03 10^3/uL (0.0-0.2); Absolute Eosinophil Count 0.11 10^3/uL (0.0-0.7); Absolute Lymphocyte Count 2.77 10^3/uL (1.2-3.4); Absolute Monocyte Count 1.34 10^3/uL (0.1-0.8); Absolute Neutrophil Count 9.18 10^3/uL (1.2-6.7); Basophils % 0.2; Eosinophils % 0.8; HCT 35.6 % (36.0-46.0); HGB 11.5 g/dL (11.2-15.7); Lymphocytes % 20.4; MCH 28.7 pg (27.0-33.0); MCHC 32.3 % (32.0-36.0); MCV 88.8 fL (80-95); MPV 11.5 fL (8.0-11.0); Monocytes % 9.9; Neutrophils % 67.7; Nucleated RBC 0 %; Platelet Count 283 10^3/uL (130-400); RBC 4.01 10^6/uL (3.93-5.22); RDW-SD 48.5 fL; WBC 13.56 10^3/uL (4.4-10.8)
[2021-04-20 15:32] LABS: ESR 54 mm/hr (0-30)
[2021-04-20 15:36] LABS: ALT 22 U/L (14-59); AST 12 U/L (15-37); Alkaline Phosphatase 124 U/L (46-116); Anion Gap 7.1 mmol/L (3-11); BUN 26 mg/dL (7-18); Bilirubin, Total 0.5 mg/dL (0.2-1.0); CO2 26.9 mmol/L (21.0-32.0); CREATININE 0.9 mg/dL (0.55-1.02); Calcium 9.1 mg/dL (8.5-10.1); Chloride 100 mmol/L (98-107); Glucose 126 mg/dL (74-106); Magnesium 2.2 mg/dL (1.8-2.4); Potassium 3.2 mmol/L (3.5-5.1); Sodium 134 mmol/L (136-145); Total Protein 6.9 g/dL (6.4-8.2); Troponin I < 50 ng/L (<or=60)
[2021-04-20 15:43] LABS: NT-proBNP 1027 pg/mL (<300); TSH (W/Ref FT4) 1.42 uIU/mL (0.36-3.74)
[2021-04-20 15:47] LABS: PTT Activated 27.3 sec (21.0-27.5); Prothrombin Time 10.3 sec (9.3-11.0)
[2021-04-20 15:51] LABS: C-Reactive Protein 16.97 mg/dL (0.0-0.3)
[2021-04-20] MEDS: Potassium Chloride 20 MEQ TABCR 40 MEQ PO (15:57)
--- NOTE | 2021-04-20 16:00 | DI.CT_ITS ---
Exam(s) CT CHEST PE CTA EXAM: CT CHEST PE CTA CLINICAL HISTORY: Elevated d-dimer R/O PE, Recent Covid. TECHNIQUE: Imaging Protocol: Axial CT angiography was performed with multi-slice acquisition and mu lti-planar and/or 3D reconstructions. CONTRAST MATERIAL: Intravenous: Omnipaque 350 Contrast volume:100 mL COMPARISON: No exams were available for comparison FINDINGS: Tracheobronchial tree: Patent where visualized. Pulmonary parenchyma: Bilateral ground-glass opacities are present. No architectural distortion. Pulmonary Arteries: No evidence of filling defect to suggest pulmonary emboli. Mediastinum and Anne-Marie: Mildly enlarged lymph nodes are seen in the mediastinum which are likely reacti ve. The esophagus is unremarkable. Visualized thyroid gland: Unremarkable. Pleura: No effusion or pneumothorax. Heart: Heart is enlarged. Coronary artery calcifications are present. No pericardial effusion. Aorta: Thoracic aorta non-dilated. No evidence of dissection. Atherosclerosis. Upper abdomen: Unremarkable. Soft tissues: Unremarkable. Bones: Within normal limits for the patient's age. IMPRESSION: 1. No evidence of pulmonary embolism, thoracic aortic dissection or aneurysm. 2. Bilateral ground-glass pulmonary opacities. The findings are suspicious for pneumonia. The findi ngs would be consistent with a COVID-19 pneumonia. RADIATION DOSE DELIVERED: 426.09mGy.cm Total DLP DATA REPOSITORY: All CT scans at this facility are submitted to the National Radiology Data Registry (NRDR) Dose Index Registry (DIR) with the [employer] ([employer]). RADIATION OPTIMIZATION: All CT scans at this facility use at least one of these dose optimization te chniques: automated exposure control; mA and/or kV adjustment per patient size (includes targeted exa ms where dose is matched to clinical indication); or iterative reconstruction.
[2021-04-20 16:03] LABS: D-Dimer 1173 ng/mlFEU (<500)
--- NOTE | 2021-04-20 16:12 | DI.VRAD_ITS ---
PROCEDURE INFORMATION: Exam: XR Chest Exam date and time: 04/20/2021 2:59 PM Age: 65 years old Clinical indication: Other: Pressure TECHNIQUE: Imaging protocol: XR of the chest. Views: 1 view. COMPARISON: CR CHEST 2 VIEWS PA,LAT 04/23/2015 3:06 PM FINDINGS: Lungs: The lungs are well aerated with subtle ill-defined ground-glass opacity seen within the right mid lung, lateral aspect. Pleural spaces: No pleural effusion or pneumothorax. Heart/Mediastinum: Mediastinum stable with heart size upper limits of normal to minimally enlarged, tortuous left descending aorta with atherosclerotic calcification within the aortic arch and midline trachea. Bones/joints: Unremarkable for patient's stated age. IMPRESSION: Subtle ground-glass opacity within the right midlung which is a nonspecific finding with possible etiology of inflammation, edema, partial collapse/filling of alveoli, etc. Dictated and Authenticated by: Irwin Michale MD. Ordering:NIRMLA Alonso MD
[2021-04-20] MEDS: Omnipaque 350 MG/ML 100 ML BTL IJ (16:24)
[2021-04-20] MEDS: Normal Saline Flush 10 ML SYR IVP (16:28)
--- NOTE | 2021-04-20 17:41 | DI.VRAD_ITS ---
PROCEDURE INFORMATION: Exam: CTA Chest With Contrast Exam date and time: 04/20/2021 4:07 PM Age: 65 years old Clinical indication: Other: Elevated ddimer R/O pe, recent covid; Patient HX: PT had covid x3 weeks ago TECHNIQUE: Imaging protocol: Computed tomographic angiography of the chest with contrast. 3D rendering (Not supervised by radiologist): MIP and/or 3D reconstructed images were created by the technologist. Radiation optimization: All CT scans at this facility use at least one of these dose optimization techniques: automated exposure control; mA and/or kV adjustment per patient size (includes targeted exams where dose is matched to clinical indication); or iterative reconstruction. Contrast material: OMNIPAQUE 350; Contrast volume: 100 ml; Contrast route: INTRAVENOUS (IV); COMPARISON: XR PORTABLE CHEST AP 04/20/2021 3:24 PM FINDINGS: Pulmonary arteries: Hounsfield attenuation of the right pulmonary artery measures 347 and therefore this study is diagnostic. No main, lobar or segmental pulmonary embolus seen. Aorta: No aneurysm or dissection. Lungs: Bilateral peripheral ground-glass opacities present, predominantly within the right upper lobe, without consolidation, series 5, image 224. Airways are patent. Pleural spaces: No pleural effusion pneumothorax. Mediastinum: Thyroid gland is unremarkable. Heart size is upper limits of normal to minimally enlarged. No pericardial effusion or thickening. Esophagus is unremarkable. Atherosclerotic calcification is seen within the aortic arch, coronary arteries and descending thoracic aorta. Lymph nodes: There is a 12 mm in short axis lymph node adjacent to the aortic arch and a 10 mm in short axis lymph node adjacent to the proximal right mainstem bronchus. Superior abdomen: Visualized portion of the liver, gallbladder, right adrenal gland, kidneys, spleen with adjacent splenule, pancreas, minimally distended stomach and bowel are unremarkable in appearance for patient's stated age. Infrequent colonic diverticuli seen without evidence of diverticulitis. No superior abdominal lymphadenopathy, free air or significant free fluid. Incidental note is made of a fat containing right Bochdalek hernia. Bones/joints: No acute osseous injury or underlying osseous mass. Soft tissues: Unremarkable. IMPRESSION: 1. No main, lobar segmental pulmonary embolus seen. 2. Bilateral peripheral ground-glass opacities, predominantly within the right upper lobe. This is a nonspecific finding. However, would recommend evaluation for possible COVID. 3. Mild mediastinal lymphadenopathy. 4. Diverticulosis without evidence of diverticulitis. Dictated and Authenticated by: Irwin Michael MD. Ordering:SHAWN Pabon MD
[2021-04-20 18:15] LABS: Troponin I < 50 ng/L (<or=60)
[2021-04-20] MEDS: Acetaminophen 325 MG TAB 650 MG PO (18:38)
[2021-04-20 19:24] LABS: Bilirubin Negative (Negative); Blood Trace-intact (Negative); Clarity Clear (Clear); Glucose Negative (Negative); Ketones 15 mg/dL (Negative); Leukocyte Esterase Negative (Negative); Nitrite Negative (Negative); Specific Gravity 1.015 (1.005-1.025); Urobilinogen 0.2 EU/dL (Up TO 0.2)
[2021-04-20 19:35] LABS: Bacteria Negative HPF (Negative); C & S Indicated? No; Crystals Negative HPF (Negative); Epithelial Cells Negative HPF (Negative); Mucus Negative (Negative); WBC 0-2 HPF (0-5)
[2021-04-20 21:20] LABS: COVID-19 PCR Negative (Negative)
[2021-04-20 21:37] LABS: Source Nasal/Nares
== END 2021-04-20 19:41 | disposition home or self-care (01) ==
PROVIDERS: Physician Assistant; Emergency Provider Registered Nurse Emergency; PCP Family Medicine
DX: R42 Dizziness and giddiness (principal); R07.89 Other chest pain; R51.9 Headache, unspecified; Z20.822 Contact with and (suspected) exposure to COVID-19; Z86.16 Personal history of COVID-19; R11.0 Nausea; R79.1 Abnormal coagulation profile
CPT/HCPCS: 36415; 71275; 80053; 85652; 87635; 93005; 99284; 99285; 71045; 81003; 81015; 83735; 83880; 84443; 84484; 85025; 85379; 85610; 85730; 86140; 93010; J3490

== ENCOUNTER 2021-05-08 17:09 | Outpatient (REF) | payer OTHER, SELFPAY ==
[2021-05-08 14:59] LABS: C-Reactive Protein 0.52 mg/dL (0.0-0.3); Magnesium 2.5 mg/dL (1.8-2.4)
== END 2021-05-08 17:10 | disposition home or self-care (01) ==
LOC: NCHCN 17:09
PROVIDERS: PCP Family Medicine; Visit Provider Family Medicine
DX: I25.810 Atherosclerosis of coronary artery bypass graft(s) without angina pectoris (principal); R70.0 Elevated erythrocyte sedimentation rate
CPT/HCPCS: 83735; 86140

== ENCOUNTER 2021-05-30 01:54 | Outpatient (CLI) | payer OTHER, SELFPAY ==
--- NOTE | 2021-05-30 10:30 | DI.US_ITS ---
APPROVED REPORT EXAM: Comprehensive 2D, Doppler, and color-flow Echocardiogram Patient Location: Out-Patient [employer] Specialist: Marivel Avelar RDCS (AE) Indications: CAD, COPD, Pulmonary HTN, CT concerning for Cardiomegaly Other Information Study Quality: Adequate. Technically limited study due to body habitus. Conclusion Normal left ventricular chamber size. Mild concentric left ventricular hypertrophy. Estimated eject ion fraction is 40 to 45%. There are inferior and posterior wall motion abnormalities Normal right ventricular size and systolic function Left atrium is mildly dilated. The right atrium is normal in size Aortic valve is sclerotic and trileaflet with mild regurgitation Mitral annular calcification, mild mitral regurgitation Normal tricuspid valve with trace to mild regurgitation. Estimated right ventricular systolic pressu re is 26 mmHg Mildly dilated ascending aorta measuring 3.53 cm Wall motion Left Ventricle The left ventricle is normal size. Left ventricular systolic function is moderately decreased. Mild c oncentric left ventricular hypertrophy. Regional wall motion abnormalities are noted. There is no erick tricular septal defect visualized. LVEF is 40-45%. Right Ventricle Right ventricle is grossly normal in size. Right ventricular systolic function is grossly normal. The RVSP is 26.3mmHg. Atria Left atrium is mildly dilated. The right atrium size is normal. The interatrial septum is intact with no evidence for an atrial septal defect. Aortic Valve The Aortic valve is sclerotic. Aortic valve is trileaflet. No hemodynamically significant valvular ao rtic stenosis. Mild aortic regurgitation. Mitral Valve Mild to moderate mitral annular calcification. No evidence of mitral valve stenosis. Mild mitral regu rgitation. Tricuspid Valve The tricuspid valve is normal in structure. There is no tricuspid valve stenosis. Trace to mild tricu spid regurgitation. Pulmonic Valve The pulmonary valve is normal in structure. There is no pulmonic valvular stenosis. Trace pulmonic re gurgitation. Great Vessels The aortic root is normal in size. The ascending aorta is mildly dilated. Aortic arch is normal in ca liber. IVC is normal in size and collapses >50% with inspiration. Pericardium There is no pericardial effusion. 2D Dimensions IVSD d PLAX 1.20 cm F: 0.6-1.0 LV Vol A2C d MOD 145.2 mL LVPW d PLAX 1.22 cm F: 0.6 - 1.0 LV Vol A4C d MOD 170.7 mL LVID d PLAX 4.99 cm F: 3.8 - 5.2 LA vol/ BSA A2C s A-L 37.1 mL/m2 LVDs 4.05 cm F: 2.2 - 3.5 LA vol/ BSA A4C s A-L 41.1 mL/m2 Ao Root d 3.04 cm F: 2.7 - 3.3 LA Vol/ BSA Biplane s A-L 41.7 mL/m2 RA Area A4C 14.43 cm2 LA Area A4C s MOD 23.27 cm2 RA Vol/ BSA A4C s A-L 20.2 mL/m2 LA Area A2C s MOD 20.70 cm2 Ao Asc Diam d 3.53 cm F: 2.3 - 3.1 LV EF A4C MOD 40.6 % LV EF Teichholz 37.9 % LV EF A2C MOD 40.9 % LVEF (Driscoll's) 41.94 % F: 54 - 74 LV EF Biplane MOD 41.9 % LV Volume 124.81 mL F: 46 - 106 SV 67.88 mL LV Volume Index 67.83 mL/m2 F: 29 - 61 SV Index 36.82 mL/m2 LV Vol Biplane MOD 161.8 mL FS 18.35 % M-Mode TAPSE 2.35 cm (M/F) >1.7 LV Diastology MV E' medial 0.048 (>0.07 m/s) E/A Ratio 1.4 LV E/e MED 20.25 (<14) MV E Vmax 0.97 (0.4-1.3 m/s) MV E' lateral 0.059 (>0.1 m/s) MV A Vmax 0.70 (0.4-1.3 m/s) LV E/e LAT 16.60 (<14) MV E/A Ratio 1.36 MV E/E' medial 20.28 MV E/E' lateral 16.61 Aortic Valve LVOT Area 2.81 cm2 AoV Area Vmax 1.65 cm2 LVOT Vmax 1.25 m/s AoV Area/ BSA (Vmax) 0.90 cm2/m2 LVOT Mean Garcia. 0.80 m/s SHAZIA Mean Garcia. 1.60 cm2 LVOT Peak Grad 6.2 mmHg SHAZIA Mean Garcia. Index 0.87 cm2/m2 LVOT Mean Grad 3.1 mmHg LVOT VTI 0.307 m LVOT Diam s 1.85 cm AoV Vmax 2.12 m/s Velocity Ratio 0.58 AoV Mean Garcia. 1.40 m/s AoV Peak Grad 18.0 mmHg LVOT SV 86.28 mL AoV Mean Grad 8.8 mmHg AoV VTI 0.459 m AoV Area VTI 1.88 cm2 AoV Area/ BSA (VTI) 1.02 cm/m2 Mitral Valve MV DT 265 (160-240 msec) MV PHT 77 msec MV Area PHT 2.86 cm2 MV VTI 0.415 m MV Area VTI 2.08 (4.0-6.0 cm2) Pulmonary Valve PV Vmax 0.89 (0.5-1.5 m/s) RVOT Peak Gr. 2.03 mmHg PV Peak Grad 3.2 mmHg RVOT Mean Gr. 1.00 mmHg PV Mean Grad 1.7 mmHg RVOT VTI 0.155 m PV VTI 0.200 m RVOT Vmax 0.71 m/s Tricuspid Valve TR Peak Grad 23.3 mmHg TR Vmax 2.42 m/s RA Pressure 3.00 mmHg RVSP (TR) 26.3 mmHg
== END 2021-05-30 02:14 ==
PROVIDERS: PCP Family Medicine; Visit Provider Family Medicine
DX: I25.10 Atherosclerotic heart disease of native coronary artery without angina pectoris (principal); J44.9 Chronic obstructive pulmonary disease, unspecified; I10 Essential (primary) hypertension
CPT/HCPCS: 93306

== ENCOUNTER 2021-06-20 01:07 | Outpatient (CLI) | payer OTHER, SELFPAY ==
--- NOTE | 2021-06-20 11:56 | DI.MAMMO_ITS ---
Exam(s) MAMMO SCREENING EXAM: MAMMO SCREENING CLINICAL HISTORY: SCREENING, Z12.39 TECHNIQUE: Mammograms were interpreted according to the usual protocol including computer analysis w [employer] CAD system, tomosynthesis and C-view imaging. COMPARISON: FINDINGS: The breasts are of moderate density with fairly symmetrical distribution of fibroglandular tissue. N o dominant mass or clumped microcalcification is identified in either breast. The current examinatio n is compared with previous examinations including September 2019 and there has been no gross interval sarah nge in appearance in comparison with prior studies. IMPRESSION: No specific evidence of malignancy at this time. Routine screening examinations are suggested at yea rly intervals due to the family history of breast carcinoma. BI-RADS Category 1 - Negative Breast Density - Category B - Scattered areas of fibroglandular density
== END 2021-06-20 01:27 ==
PROVIDERS: PCP Family Medicine; Visit Provider Family Medicine
DX: Z12.31 Encounter for screening mammogram for malignant neoplasm of breast (principal); Z80.3 Family history of malignant neoplasm of breast
CPT/HCPCS: 77063; 77067

== ENCOUNTER 2022-07-21 15:42 | Outpatient (REF) | payer OTHER, SELFPAY ==
[2022-07-21 15:08] LABS: Hemoglobin A1C 5.9 % (<5.7)
[2022-07-21 15:19] LABS: Anion Gap 8.4 mmol/L (3-11); BUN 28 mg/dL (7-18); CO2 30.6 mmol/L (21.0-32.0); CREATININE 0.8 mg/dL (0.55-1.02); Calcium 9.5 mg/dL (8.5-10.1); Calculated LDL 271 mg/dL (<100); Chloride 101 mmol/L (98-107); Cholesterol 352 mg/dL (<200); Estimated GFR 80.21 (mL/min/1.73m2); Glucose 98 mg/dL (74-106); HDL Cholesterol 53 mg/dL (40-60); Potassium 3.6 mmol/L (3.5-5.1); Sodium 140 mmol/L (136-145); Triglyceride 140 mg/dL (<150)
== END 2022-07-21 15:43 | disposition home or self-care (01) ==
LOC: NCHCN 15:42
PROVIDERS: PCP Family Medicine; Visit Provider Family Medicine
DX: I10 Essential (primary) hypertension (principal); R73.03 Prediabetes; E78.5 Hyperlipidemia, unspecified
CPT/HCPCS: 80048; 80061; 83036

== ENCOUNTER 2022-08-27 12:17 | Emergency (ER) | payer OTHER, SELFPAY ==
[2022-08-27] VITALS (11 sets, daily range): BP systolic 150–191; BP diastolic 66–93; PULSE 53–75; RESP 12–17; O2SAT 95–99
--- NOTE | 2022-08-27 12:15 | RT.EKG_ITS ---
APPROVED REPORT Exam: Resting ECG Reason for Exam: Chest pain Patient Location: E HR:60 bpm ECG Measurements Heart Rate 60 AXIS IN 216 P 65 QRSd 131 QRS 1 QT 473 T 101 QTc 473 Conclusion Sinus rhythm...normal P axis, V-rate 60- 99 Borderline prolonged IN interval...IN >212, V-rate 50- 90 LVH with secondary repolarization abnormality...multi-LVH criteria, abnrm ST-T Inferior infarct, old...Q >35mS, II III aVF sinus rhtythm with borderline prolonged IN, LVH, inferior and anterior Q waves. When compared to prio r 04/20/21 IN interval has improved
--- NOTE | 2022-08-27 13:45 | DI.RAD_ITS ---
Exam(s) XR PORTABLE CHEST AP EXAM: XR PORTABLE CHEST AP CLINICAL HISTORY: chest pain TECHNIQUE: 2D digital imaging was performed of the chest. One image was obtained. An AP view was ob tained. COMPARISON: CR,XR XR PORTABLE CHEST AP from 04/20/2021 FINDINGS: MEDIASTINUM: Normal. HEART: Mild cardiomegaly. PULMONARY VASCULATURE: Normal. LUNGS: Clear. PLEURAL SPACE: No pleural effusion or pneumothorax. BONE:Within normal limits for the patient's age. OTHER FINDINGS:Normal. IMPRESSION: No acute pulmonary findings. DATA REPOSITORY: RADIATION DOSE DELIVERED:
[2022-08-27 14:17] LABS: Abs Immature Grans 0.04 10^3/uL (0.0-0.06); Absolute Basophil Count 0.04 10^3/uL (0.0-0.2); Absolute Lymphocyte Count 3.02 10^3/uL (1.2-3.4); Absolute Neutrophil Count 5.97 10^3/uL (1.2-6.7); Basophils % 0.4; HCT 42.5 % (36.0-46.0); Immature Grans % 0.4; Lymphocytes % 30.3; MCH 28.1 pg (27.0-33.0); MCHC 32.9 % (32.0-36.0); MCV 85 fL (80-95); MPV 10.9 fL (8.0-11.0); Neutrophils % 59.9; Platelet Count 242 10^3/uL (130-400); RBC 4.98 10^6/uL (3.93-5.22); RDW 14.6 % (11.7-14.6); RDW-SD 45.1 fL; WBC 9.97 10^3/uL (4.4-10.8)
[2022-08-27 14:40] LABS: ALT 24 U/L (14-59); AST 15 U/L (15-37); Albumin 3.9 g/dL (3.4-5.0); Alkaline Phosphatase 133 U/L (46-116); Anion Gap 8.1 mmol/L (3-11); BUN 26 mg/dL (7-18); Bilirubin, Total 0.4 mg/dL (0.2-1.0); CO2 29.9 mmol/L (21.0-32.0); Calcium 9.4 mg/dL (8.5-10.1); Chloride 99 mmol/L (98-107); Glucose 77 mg/dL (74-106); Magnesium 2.2 mg/dL (1.8-2.4); Potassium 3.1 mmol/L (3.5-5.1); Sodium 137 mmol/L (136-145); Total Protein 7.7 g/dL (6.4-8.2); Troponin I < 50 ng/L (<or=60)
[2022-08-27] MEDS: Aspirin 81 MG CHEW 162 MG CH ×2 (14:57→16:08)
[2022-08-27 15:00] LABS: CREATININE 0.8 mg/dL (0.55-1.02); Estimated GFR 79.71 (mL/min/1.73m2)
[2022-08-27] MEDS: Losartan 50 MG TAB 100 MG PO (16:09)
[2022-08-27] MEDS: Metoprolol CR 25 MG TABCR PO (16:09)
--- NOTE | 2022-08-27 16:11 | ED.GENADUL_ITS ---
Discharge Plan Disposition Patient Disposition: Transfer-Acute Inpatient Care Specific Acute Inpt Facility: [facility] Discharge Details Clinical Impression: Chest pain Primary Care Provider: Giuseppe Tenorio ED Provider: Jim Rodriguez Home Meds and New Rx's Prescriptions: Continued losartan 100 mg tablet 100 mg PO HS Patient Comments: 09/24/20 pt states she takes 100 mg, RH hydrochlorothiazide 25 mg tablet 25 mg PO DAILY Patient Comments: 09/24/20 confirmed by PCP med list RH amlodipine 10 mg tablet 10 mg PO DAILY 8-yhlegmr-F-tryptophan (bulk) 100 GM powder 100 gm Miscellaneous DAILY pantoprazole [Protonix] 20 MG tablet,delayed release (DR/EC) 20 mg PO HS Patient Comments: pt unsure if this is 20 mg or 40 mg now 04/23/15 B Complex 1 EACH tablet extended release 1 ea PO DAILY AM calcium carbonate [Calcium 500] 500 MG tablet 1,000 mg PO DAILY coenzyme Q10 [CoQ-10] 100 MG capsule 100 mg PO DAILY albuterol sulfate [Ventolin HFA] 8 GM HFA aerosol inhaler 2 puff Inhalation Q6H nitroglycerin 0.4 MG tablet, sublingual 0.4 mg Sublingual DIRECTED Patient Comments: pt unsure when she took this last 04/23/15 aspirin [Aspir-81] 81 MG tablet,delayed release (DR/EC) 81 mg PO DAILY metoprolol succinate [Toprol XL] 25 MG tablet extended release 24 hr 25 mg PO HS Patient Comments: Increased 05/16/[address] Whitt magnesium oxide 400 MG tablet 400 mg PO BID Qty: 180 0RF clopidogrel [Plavix] 75 MG tablet 75 mg PO HS Discharge Data Discharge Date/Time-TO BE ENTERED AT DEPARTURE: 08/27/22 18:20 Medical Decision Making <PAWEL Thomas - Last Filed: 08/28/22 11:20> 67-year-old female with complex history of coronary artery disease with stents presenting with chest pain, last episode last evening Asymptomatic with chest discomfort at this time, last episode yesterday evening Secondary to age, comorbidities, and prior stent placement, aspirin 324 was initiated Patient did take her 75 mg of Plavix this morning Her EKG was reviewed, please see attendings documentation without acute obvious ischemia or injury Chest x-ray does not show evidence of acute abnormality per radiology interpretation and my review Case was discussed with Katelin Crawley, nurse practitioner on-call for [facility] cardiology, given patient risk factors and prior need for cardiac stenting, patient is a candidate for cardiac catheterization at this time, she remains asymptomatic, she is mildly hypertensive and we will treat with metoprolol and losartan Recommendation for heparin bolus and infusion, continuation of 75 mg of Plavix and full dose aspirin Patient has been accepted to [facility] and is pending bed and transfer at this time, 1615 she remains in stable condition, asymptomatic Care transitioned to Dr. Jim Rodriguez at 1600 pending transfer to [facility] <Jim Rodriguez MD - Last Filed: 08/28/22 20:43> Lab Data Lab results reviewed: Yes I reviewed the patient's lab results. Labs: Laboratory Tests Range/Units 08/27/22 08/27/22 14:08 14:08 WBC (4.4-10.8) 10^3/uL 9.97 RBC (3.93-5.22) 10^6/uL 4.98 Hgb (11.2-15.7) g/dL 14.0 Hct (36.0-46.0) % 42.5 MCV (80-95) fL 85 MCH (27.0-33.0) pg 28.1 MCHC (32.0-36.0) % 32.9 RDW (11.7-14.6) % 14.6 Plt Count (130-400) 10^3/uL 242 MPV (8.0-11.0) fL 10.9 Immature Gran % 0.4 Neutrophils % 59.9 Lymphocytes % 30.3 Monocytes % 7.0 Eosinophils % 2.0 Basophils % 0.4 Nucleated RBC % (0.0-0.3) % 0.0 Absolute Neutrophils (1.2-6.7) 10^3/uL 5.97 Absolute Lymphocytes (1.2-3.4) 10^3/uL 3.02 Absolute Monocytes (0.1-0.8) 10^3/uL 0.70 Absolute Eosinophils (0.0-0.7) 10^3/uL 0.20 Absolute Basophils (0.0-0.2) 10^3/uL 0.04 Sodium (136-145) mmol/L 137 Potassium (3.5-5.1) mmol/L 3.1 L Chloride (98-107) mmol/L 99 Carbon Dioxide (21.0-32.0) mmol/L 29.9 Anion Gap (3-11) mmol/L 8.1 BUN (7-18) mg/dL 26 H Creatinine (0.55-1.02) mg/dL 0.8 Est GFR (CKD-EPI 2020) (mL/min/1.73m2) 79.71 Glucose (74-106) mg/dL 77 Calcium (8.5-10.1) mg/dL 9.4 Magnesium (1.8-2.4) mg/dL 2.2 Total Bilirubin (0.2-1.0) mg/dL 0.4 AST (15-37) U/L 15 ALT (14-59) U/L 24 Alkaline Phosphatase (46-116) U/L 133 H Troponin I (<or=60) ng/L < 50 Total Protein (6.4-8.2) g/dL 7.7 Albumin (3.4-5.0) g/dL 3.9 Date: 08/27/22 Time: 16:49 Note: Patient seen, examined, and discussed with PAWEL Thomas. I agree with treatment plan as discussed/documented. Concern for unstable angina. EKG reviewed and no STEMI. Please see EKG report. Patient assessed and notes no chest pain at this time. Patient does note she has had intermittent chest pain with exertion over the past couple months and now over the past couple days chest discomfort at rest intermittently. Initial troponin negative. PAWEL Rivas spoke with [facility] cardiology who will accept the patient in transfer. Patient has been started on heparin IV infusion with bolus. I will give patient's prescribed evening metoprolol for hypertension. HPI <PAWEL Thomas - Last Filed: 08/28/22 11:20> General Date/Time Provider Initiated Documentation: 08/27/22 12:30 . HPI Narrative: This 67-year-old female with history of coronary artery disease, prior AAA repair, with prior intervention and stents, CHF, presents with report of chest discomfort which awoke her from sleep on Thursday morning. She took a nitroglycerin which she has not needed since an [place] in 2016 which alleviated her symptoms almost immediately. She states that later that day she went out to feed the chickens and she developed some discomfort which was alleviated with nitroglycerin. She states she had several additional episodes of pain 1 of which awoke her in the morning on Thursday. This was alleviated with nitroglycerin and lasted approximately 5 minutes. She had a subsequent episode of chest discomfort when feeding the chickens last evening. This lasted for 5 minutes until she sat down to rest and has resolved. She has been pain-free since that time. She denies any calf pain or swelling, abdominal pain, chest pain, shortness of breath at this time. She has had some shortness of breath and nausea associated with her episodes, the last being last evening around 6 or 7 in the evening. She denies any weight gain or peripheral edema. Related Data Home Medications Medication Instructions Recorded Confirmed albuterol sulfate 90 mcg/actuation 2 puff inhalation Q6H 12/09/13 08/27/22 aerosol inhaler (Ventolin HFA) aspirin 81 mg tablet,delayed 81 mg PO DAILY 12/09/13 08/27/22 release (Aspir-) nitroglycerin 0.4 mg sublingual 0.4 mg sublingual DIRECTED 12/09/13 08/27/22 tablet 4-xwedliz-W-tryptophan (bulk) 100 gm miscellaneous DAILY 04/20/15 08/27/22 calcium carbonate 500 mg calcium 1,000 mg PO DAILY 04/20/15 08/27/22 (1,250 mg) tablet (Calcium 500) coenzyme Q10 100 mg capsule 100 mg PO DAILY 04/20/15 08/27/22 (CoQ-10) pantoprazole 20 mg tablet,delayed 20 mg PO HS 04/20/15 08/27/22 release (Protonix) vitamin B complex (B Complex 1 ea PO DAILY AM 04/20/15 08/27/22 tablet,extended release) metoprolol succinate 25 mg 25 mg PO HS 04/23/15 08/27/22 tablet,extended release 24 hr (Toprol XL) magnesium oxide 400 mg (241.3 mg 400 mg PO BID #180 tabs 04/25/15 08/27/22 magnesium) tablet clopidogrel 75 mg tablet (Plavix) 75 mg PO HS 06/05/17 08/27/22 amlodipine 10 mg tablet 10 mg PO DAILY 09/19/19 08/27/22 hydrochlorothiazide 25 mg tablet 25 mg PO DAILY 09/24/20 08/27/22 losartan 100 mg tablet 100 mg PO HS 09/24/20 08/27/22 Previous Rx's Medication Instructions Recorded magnesium oxide 400 mg (241.3 mg 400 mg PO BID #180 tabs 04/25/15 magnesium) tablet Allergies Allergy/AdvReac Type Severity Reaction Status Date / Time ibuprofen Allergy Severe Hives Verified 04/20/21 14:36 codeine AdvReac Mild nausea/vomi Verified 04/20/21 14:36 ting JUAN MIGUEL Inhibitors AdvReac Unverified 04/20/21 15:00 bupropion [From Wellbutrin] AdvReac Unverified 04/20/21 15:00 General Stated Complaint: Chest Pain DENNY: 3 PFSH <PAWEL Thomas - Last Filed: 08/28/22 11:20> All Active Problems (Updated 08/27/22 @ 16:52 by Jim Rodriguez MD) Chest pain (Acute) ASCVD (arteriosclerotic cardiovascular disease) (Acute) CHF (congestive heart failure), NYHA class III (Acute) Elevated troponin I measurement (Acute) Coronary arteriosclerosis (Acute) Social History (Updated 09/06/21 @ 13:07 by Brittaney Al RN) Smoking/Tobacco Use Status: Current every day Tobacco Type: cigarettes Smoking packs per day: 0.5 Smoking cigarettes per day: 10.0 Smoking risk assessment performed?: Yes Alcohol Intake: never Drug use: Never Substance use type: does not use Do you feel safe at home: Yes Do you feel safe in your relationship?: Yes History History Para 2 Hx # Term Pregnancies Multiple births Hx # Pregnancies Ectopic pregnancies AB induced Hx Number of Living Children AB spontaneous Exam <PAWEL Thomas Last Filed: 08/28/22 11:20> Narrative Exam Narrative: Alert and oriented, well in appearance, pupils equal round reactive to light and accommodation, no scleral icterus, lungs clear to auscultation bilaterally, no respiratory distress, cardiac rate rhythm regular, no abdominal tenderness or pulsatile mass, no pallor, alert and oriented x4, no peripheral edema, distal pulses intact bilaterally Course <PAWEL Thomas Last Filed: 08/28/22 11:20> Vital Signs Vital signs: Vital Signs Pulse 62 08/27/22 12:21 Respiratory Rate 17 08/27/22 12:21 Blood Pressure 150/66 H 08/27/22 12:21 Pulse Oximetry 98 08/27/22 12:21 Pulse 69 08/27/22 15:01 Pulse 69 08/27/22 15:01 Respiratory Rate 13 08/27/22 15:01 Respiratory Effort Normal, Non-Labored 08/27/22 14:16 Respiratory Depth Normal 08/27/22 14:16 Respiratory Pattern Normal 08/27/22 14:16 Blood Pressure 168/76 H 08/27/22 15:01 Blood Pressure Mean 100 08/27/22 15:01 Pulse Oximetry 96 08/27/22 14:32 Oxygen Delivery Method Room Air 08/27/22 12:21 Oxygen Flow Rate 0 08/27/22 12:21 Lab/Test Results Lab/Test Results: Laboratory Tests Range/Units 08/27/22 08/27/22 14:08 14:08 WBC (4.4-10.8) 10^3/uL 9.97 RBC (3.93-5.22) 10^6/uL 4.98 Hgb (11.2-15.7) g/dL 14.0 Hct (36.0-46.0) % 42.5 MCV (80-95) fL 85 MCH (27.0-33.0) pg 28.1 MCHC (32.0-36.0) % 32.9 RDW (11.7-14.6) % 14.6 Plt Count (130-400) 10^3/uL 242 MPV (8.0-11.0) fL 10.9 Immature Gran % 0.4 Neutrophils % 59.9 Lymphocytes % 30.3 Monocytes % 7.0 Eosinophils % 2.0 Basophils % 0.4 Nucleated RBC % (0.0-0.3) % 0.0 Absolute Neutrophils (1.2-6.7) 10^3/uL 5.97 Absolute Lymphocytes (1.2-3.4) 10^3/uL 3.02 Absolute Monocytes (0.1-0.8) 10^3/uL 0.70 Absolute Eosinophils (0.0-0.7) 10^3/uL 0.20 Absolute Basophils (0.0-0.2) 10^3/uL 0.04 Sodium (136-145) mmol/L 137 Potassium (3.5-5.1) mmol/L 3.1 L Chloride (98-107) mmol/L 99 Carbon Dioxide (21.0-32.0) mmol/L 29.9 Anion Gap (3-11) mmol/L 8.1 BUN (7-18) mg/dL 26 H Creatinine (0.55-1.02) mg/dL 0.8 Est GFR (CKD-EPI 2020) (mL/min/1.73m2) 79.71 Glucose (74-106) mg/dL 77 Calcium (8.5-10.1) mg/dL 9.4 Magnesium (1.8-2.4) mg/dL 2.2 Total Bilirubin (0.2-1.0) mg/dL 0.4 AST (15-37) U/L 15 ALT (14-59) U/L 24 Alkaline Phosphatase (46-116) U/L 133 H Troponin I (<or=60) ng/L < 50 Total Protein (6.4-8.2) g/dL 7.7 Albumin (3.4-5.0) g/dL 3.9 <Jim Rodriguez MD - Last Filed: 08/28/22 20:43> Critical Care Time Critical Care Time: Yes Total Critical Care Time: 45 Attestation: I spent greater than 45 minutes addressing this patient's immediate life threats. Please see MDM section of note. This time was spent engaged in work directly related to the patient's care, exclusive of separate procedures, and failure to initiate these interventions would have likely resulted in clinically significant or life threatening deterioration in the patient's condition. Sign Out <PAWEL Thomas - Last Filed: 08/28/22 11:20> Sign Out Data: Sign Out Comment: heparin, ACS protocol, telemetry monitoring, pending transfer to [facility] for cardiac catheterization Last updated by Julieta Rivas PA at 08/27/22 16:18
[2022-08-27] MEDS: Heparin in 0.45% NaCl 25,000 UNIT/250 ML BAG 1000 UNIT IV (16:20)
[2022-08-27] MEDS: Nicotine 14 MG/24 HR PATCH TD (17:12)
[2022-08-27 17:16] LABS: Troponin I < 50 ng/L (<or=60)
== END 2022-08-27 18:20 | disposition short-term general hospital (02) ==
PROVIDERS: Emergency Medicine Emergency Medical Services; Emergency Provider Student in an Organized Health Care Education/Training Program; PCP Family Medicine
DX: R07.9 Chest pain, unspecified (principal); R77.8 Other specified abnormalities of plasma proteins; I25.10 Atherosclerotic heart disease of native coronary artery without angina pectoris; I11.0 Hypertensive heart disease with heart failure; I50.32 Chronic diastolic (congestive) heart failure; Z95.5 Presence of coronary angioplasty implant and graft; Z79.82 Long term (current) use of aspirin; Z79.02 Long term (current) use of antithrombotics/antiplatelets
CPT/HCPCS: 80053; 93005; 99291; 71045; 83735; 84484; 85025; 93010

== ENCOUNTER 2022-09-19 08:43 | Outpatient (CLI) | payer OTHER, SELFPAY ==
--- NOTE | 2022-09-19 08:43 | RT.EKG_ITS ---
APPROVED REPORT Exam: Resting ECG Reason for Exam: CAD Patient Location: O HR:59 bpm ECG Measurements Heart Rate 59 AXIS NC 235 P 37 QRSd 125 QRS -19 QT 469 T 128 QTc 465 Conclusion Sinus rhythm...normal P axis, V-rate 50- 99 Prolonged NC interval...NC >220, V-rate 50- 90 Left ventricular hypertrophy...multiple voltage criteria Inferior infarct, old...Q >35mS, II III aVF Lateral leads are also involved...lat Q or ST-T abnormalities
== END 2022-09-19 08:44 | disposition home or self-care (01) ==
LOC: DI.CARD 08:44
PROVIDERS: PCP Family Medicine; Visit Provider Internal Medicine Cardiovascular Disease
DX: I25.10 Atherosclerotic heart disease of native coronary artery without angina pectoris (principal)
CPT/HCPCS: 93010

== ENCOUNTER 2022-10-06 12:39 | Outpatient (RCR) | payer OTHER, SELFPAY | END 2022-10-06 23:59 | disposition home or self-care (01) | LOC: CR 12:39 | PROVIDERS: PCP Family Medicine; Visit Provider Internal Medicine Cardiovascular Disease | DX: Z95.2 Presence of prosthetic heart valve (principal); Z51.89 Encounter for other specified aftercare; I25.10 Atherosclerotic heart disease of native coronary artery without angina pectoris | CPT/HCPCS: S9472 ==

== ENCOUNTER → 2022-11-03 01:22 | Outpatient (CLI) | payer OTHER, SELFPAY ==
--- NOTE | 2022-11-03 | DI.MAMMO_ITS ---
Exam(s) MAMMO SCREENING EXAM: MAMMO SCREENING CLINICAL HISTORY: SCREENING, Z12.39 TECHNIQUE: Mammograms were interpreted according to the usual protocol including computer analysis w [employer] CAD system, tomosynthesis and C-view imaging. COMPARISON: 2013 through 2021 FINDINGS: The breasts are composed of scattered fibroglandular densities, Breast Density category B. No suspicious masses or suspicious microcalcifications are seen. No skin thickening or abnormal axillary lymph nodes are seen. There has been no significant change from prior exams. IMPRESSION: BI-RADS Category 1, Negative mammogram Yearly screening mammography is recommended. Breast Density - Category B, scattered fibroglandular densities. A negative radiographic report should not delay biopsy if a dominant or clinically suspicious mass is present. Up to ten percent of cancers are not identified on mammography. A negative report may reinforce clinical impression. Adenosis and dense breasts may obscure an underlying neoplasm. False positive reports average 6 to 10%. Patient will receive a letter notifying them of these results.
== END ==
PROVIDERS: PCP Family Medicine; Visit Provider Family Medicine
DX: Z12.31 Encounter for screening mammogram for malignant neoplasm of breast (principal)
CPT/HCPCS: 77063; 77067

== ENCOUNTER 2022-11-05 11:21 | Outpatient (RCR) | payer OTHER, SELFPAY | END 2022-11-06 23:59 | disposition home or self-care (01) | LOC: CR 11:21 | PROVIDERS: PCP Family Medicine; Visit Provider Internal Medicine Cardiovascular Disease | DX: I25.10 Atherosclerotic heart disease of native coronary artery without angina pectoris (principal); Z95.5 Presence of coronary angioplasty implant and graft; Z51.89 Encounter for other specified aftercare | CPT/HCPCS: S9472 ==

== ENCOUNTER 2022-12-05 09:54 | Outpatient (RCR) | payer OTHER, SELFPAY | END 2022-12-06 23:59 | disposition home or self-care (01) | LOC: CR 09:54 | PROVIDERS: PCP Family Medicine; Visit Provider Internal Medicine Cardiovascular Disease | DX: Z51.89 Encounter for other specified aftercare (principal); Z95.5 Presence of coronary angioplasty implant and graft | CPT/HCPCS: S9472 ==

== ENCOUNTER 2022-12-17 09:00 | Outpatient (RCR) | payer OTHER, SELFPAY | END 2023-01-06 23:59 | disposition home or self-care (01) | LOC: CR 09:00 | PROVIDERS: PCP Family Medicine; Visit Provider Internal Medicine Cardiovascular Disease | DX: Z95.5 Presence of coronary angioplasty implant and graft (principal); Z51.89 Encounter for other specified aftercare; I25.10 Atherosclerotic heart disease of native coronary artery without angina pectoris | CPT/HCPCS: S9472 ==

== ENCOUNTER → 2023-01-05 02:00 | Outpatient (CLI) | payer OTHER, SELFPAY ==
--- NOTE | 2023-01-05 10:30 | DI.US_ITS ---
APPROVED REPORT EXAM: Comprehensive 2D, Doppler, and color-flow Echocardiogram Patient Location: Out-Patient News Librarian: Marivel Avelar RDCS (AE) Indications: LV function, Ischemic cardiomyopathy Other Information Study Quality: Adequate Conclusion Mildly dilated left ventricle. Ejection fraction is 35 to 40%. There is inferior and posterior wall akinesis, posterolateral hypokinesis Normal right ventricular size and systolic function Left atrium is mildly enlarged. Right atrial size is normal Aortic valve is calcified and trileaflet. There is mild aortic regurgitation. There is no significa nt aortic stenosis; mean gradient is 10 mmHg Mitral annular calcification with moderate central regurgitation Mildly dilated ascending aorta 3.51 cm Wall motion Left Ventricle Left ventricle is mildly dilated. Left ventricular systolic function is moderately decreased. There i s normal left ventricular wall thickness. Regional wall motion abnormalities are noted. There is no v entricular septal defect visualized. LVEF is 35-40%. Right Ventricle Right ventricle is grossly normal in size. Right ventricular systolic function is grossly normal. Atria Left atrium is mildly dilated. Right atrium is normal The interatrial septum is intact with no eviden ce for an atrial septal defect. Aortic Valve Aortic valve is calcified. Aortic valve is trileaflet. Mean gradient is 10 mmHg mild aortic regurgita tion. Mitral Valve Mild to moderate mitral annular calcification. No evidence of mitral valve stenosis. Moderate mitral regurgitation. Tricuspid Valve The tricuspid valve is normal in structure. There is no tricuspid valve stenosis. Trace tricuspid reg urgitation. Unable to assess PA pressure. Pulmonic Valve The pulmonary valve is normal in structure. There is no pulmonic valvular stenosis. Mild pulmonic re gurgitation. Great Vessels The aortic root is normal in size. The ascending aorta is mildly dilated. Aortic arch is normal in ca liber. IVC is normal in size and collapses >50% with inspiration. Pericardium There is no pericardial effusion. 2D Dimensions IVSD d PLAX 0.90 cm F: 0.6-1.0 Ao Root d 3.45 cm F: 2.7 - 3.3 LVPW d PLAX 0.94 cm F: 0.6 - 1.0 Ao Asc Diam d 3.51 cm F: 2.3 - 3.1 LVID d PLAX 5.74 cm F: 3.8 - 5.2 LVDs 4.87 cm F: 2.2 - 3.5 LV EF Teichholz 31.6 % FS 15.12 % LV EDV (Teich) 162.8 mL LV ESV (Teich) 111.5 mL M-Mode TAPSE 2.60 cm (M/F) >1.7 Auto EF LV EDV A4C 197.9 mL LV EDV A2C 247.7 mL LV EDV BP 214.1 mL LV ESV A4C 124.8 mL LV ESV A2C 166.7 mL LV ESV BP 140.5 mL LVEF(%) A4C 36.9 % LVEF(%) A2C 32.7 % LVEF(%) BP 34.4 % LV SV A4C 73.1 ml LV SV A2C 80.9 ml LV SV BP 73.6 ml LV CO A4C 4.5 L/min LV CO A2C 4.9 L/min LV CO BP 4.7 L/min HR A4C 61.65 BPM HR A2C 60.00 BPM LV EDV Index (BP) LV Strain Long Pk Overal Avg (s) 9.29 RV Strain Global Peak Long. Strain A4C 16.04 Global Peak Long. Strain A4C FW 21.93 LA Volume LA Length A4C 6.0 cm LA Length A2C 5.8 cm LA Area A4C s 25.97 cm2 LA Area A2C s 23.53 cm2 LA Vol A4C A-L 94.82 mL LA Vol A2C A-L 81.29 mL LA Vol Biplane A-L 89.7 mL LA Vol/BSA A4C A-L LA Vol/BSA A2C A-L LA Vol/BSA BP A-L 47.7 mL/m2 LA Vol A4C MOD 92.3 mL LA Vol A2C MOD 77.0 mL LA Vol BP MOD 84.5 mL RA Volume RA Area A4C 12.0 cm2 RA ESV A4C (A-L) 23.0mL RA Vol/BSA A4C A-L RA Length A4C 5.3 cm RA ESV A4C (MOD) 22.2mL LV Diastology MV E' medial 0.064 (>0.07 m/s) MV E Vmax 1.19 (0.4-1.3 m/s) MV E/E' MED 18.62 (<14) MV A Vmax 0.50 (0.4-1.3 m/s) E/A Ratio 2.4 Aortic Valve AoV Vmax 2.25 m/s LVOT Vmax 1.35 m/s AoV Peak Grad 40.6 mmHg LVOT Peak Grad 7.3 mmHg AoV Area (Vmax) 1.91 cm2 LVOT VTI 0.334 m AoV VTI 0.550 m LVOT Mean Grad 4.1 mmHg AoV Mean Garcia. 1.52 m/s LVOT SV 106.42 mL AoV Mean Grad 10.0 mmHg LVOT Diam s 2.00 cm AoV Area (VTI) 1.93 cm2 AV Regurg Peak Gr. 61.05 mmHg Velocity Ratio 0.60 AR Decel [place] 1.3m/sec2 AR DT 2922 msec AR PHT 847 msec AR Vmax 3.91 m/s Mitral Valve MV DT 202 (160-240 msec) MV Vmax TIPS 1.32 m/s MV Mean Grad 2.2 (<2mmHg) MV VTI 0.471 m Pulmonary Valve PV Vmax 1.15 (0.5-1.5 m/s) RVOT Vmax 0.83 m/s PV Peak Grad 5.3 mmHg RVOT Peak Gr. 2.8 mmHg PV Mean Garcia 0.81 m/s RVOT VTI 0.187 m PV Mean Grad 2.9 mmHg RVOT Mean Gr. 1.7 mmHg Tricuspid Valve RA Pressure 3.00 mmHg TV S' 0.17 m/s
== END ==
PROVIDERS: PCP Family Medicine; Visit Provider Internal Medicine Cardiovascular Disease
DX: I25.5 Ischemic cardiomyopathy (principal)
CPT/HCPCS: 93306

== ENCOUNTER 2023-01-19 09:54 | Outpatient (REF) | payer OTHER, SELFPAY ==
[2023-01-19 14:53] LABS: ALT 22 U/L (14-59); AST 12 U/L (15-37); Albumin 3.8 g/dL (3.4-5.0); Alkaline Phosphatase 118 U/L (46-116); Anion Gap 8.4 mmol/L (3-11); BUN 25 mg/dL (7-18); Bilirubin, Total 0.6 mg/dL (0.2-1.0); CO2 29.6 mmol/L (21.0-32.0); CREATININE 0.8 mg/dL (0.55-1.02); Calcium 9.5 mg/dL (8.5-10.1); Calculated LDL 110 mg/dL (<100); Chloride 102 mmol/L (98-107); Cholesterol 193 mg/dL (<200); Estimated GFR 79.71 (mL/min/1.73m2); Glucose 92 mg/dL (74-106); HDL Cholesterol 53 mg/dL (40-60); Lipase 38 U/L (16-77); Sodium 140 mmol/L (136-145); Total Protein 6.9 g/dL (6.4-8.2); Triglyceride 153 mg/dL (<150)
== END 2023-01-19 09:55 | disposition home or self-care (01) ==
LOC: NCHCN 09:54
PROVIDERS: PCP Family Medicine; Visit Provider Family Medicine
DX: I25.10 Atherosclerotic heart disease of native coronary artery without angina pectoris (principal); R10.11 Right upper quadrant pain
CPT/HCPCS: 80053; 80061; 83690